=== PATIENT | male | born 1980 | race Caucasian/White ===

== ENCOUNTER → 2017-05-27 | Outpatient (CLI) | payer BC, OTHER ==
--- NOTE | 2017-05-27 07:10 | DIAGNOSTIC IMAGING REPORT ---
CT SCAN OF THE ABDOMEN AND PELVIS WITHOUT CONTRAST CLINICAL HISTORY: K50.90 CROHN'S DISEASE., History of surgery with possible abscess. COMPARISON STUDY: No previous studies for comparison. TECHNIQUE: CT scan of the abdomen and pelvis was performed from the lung bases to the proximal femurs. Images are reviewed in the axial, sagittal, and coronal planes. IV contrast was not administered for this examination. A dose lowering technique was utilized adhering to the principles of ALARA. CT DOSE: 736.35 mGy.cm FINDINGS: Lower chest: The heart is normal in size and configuration, without pericardial effusion. The lung bases and pleural spaces are clear. Liver: The unenhanced liver is normal in size, contour, and attenuation. There is no intrahepatic biliary ductal dilatation. Gallbladder: Unremarkable. Spleen: Normal in size and attenuation. Pancreas: Unremarkable. Adrenal glands: Unremarkable. Kidneys: The unenhanced kidneys are normal in size without hydronephrosis. There is no contour deforming renal mass lesion. No renal calculi are identified. Bowel: Evaluation the bowel is significantly limited given the lack of oral and intravenous contrast. There are no transition zones to indicate bowel obstruction. The patient appears to be status post a right hemicolectomy. There is infiltration of the fat at the expected level of the ileocolonic anastomosis. There are extraluminal air bubbles present. There is a surgical drain and air fluid collection measuring approximately 3 cm. This likely represents a perianastomotic abscess. Peritoneum: There is no evidence of significant ascites. Extraluminal gas bubbles present as described above. Vasculature: The abdominal aorta is normal in course and caliber. Adenopathy: None. Pelvic viscera: The bladder, and pelvic viscera are unremarkable. Skeletal structures: No destructive osseous lesions are seen. IMPRESSION: 1. Difficult to study given the lack of intravenous and orally administered contrast 2. No evidence of bowel obstruction 3. Postsurgical changes of an apparent right hemicolectomy. There are extensive inflammatory changes at the level of the ileocolonic anastomosis. There is infiltration of the surrounding mesenteric fat. There are multiple extraluminal gas bubbles. There is a surgical drain within a 3 cm abscess. Additional tiny abscesses may be present. Given the multiple extra luminal air bubbles, and anastomotic leak cannot be excluded.. Electronically signed by: Brayan Minor M.D. 05/27/2017 7:09 AM Dictated Date/Time: 05/27/2017 7:00 AM
== END | disposition home or self-care (01) ==
LOC: C.CTS 06:44
PROVIDERS: ATTEND Colon & Rectal Surgery
DX: K50.90 Crohn's disease, unspecified, without complications (principal)

== ENCOUNTER → 2017-06-12 | Outpatient (CLI) | payer BC ==
[~2017-06-12] MED LIST: OPTIRAY 320 IV PRN; PATIENT'S ALLERGY INFO NEEDS ENTERED SCH
--- NOTE | 2017-06-12 08:15 | DIAGNOSTIC IMAGING REPORT ---
ABD/PELVIS IV CONTRAST ONLY CLINICAL HISTORY: 36 years-old Male presenting with CROHN'S DS,RT LOWER QUAD PAIN,RT HIP PAIN,FISTULA. TECHNIQUE: Multidetector CT of the abdomen and pelvis was performed after the administration of intravenous contrast. IV contrast: 120 mL of Optiray 320. A dose lowering technique was used consistent with the principles of ALARA (as low as reasonably achievable). COMPARISON: 05/27/2017. CT DOSE (mGy.cm): The estimated cumulative dose is 475.63 mGy.cm. 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 Lung bases: Minimal dependent changes likely atelectasis. Normal heart size. Few foci of gas within the right ventricle likely from injection. No pericardial or pleural effusion. Liver: Normal morphology. Tiny hypodensity in the right hepatic lobe too small to characterize but likely hepatic cyst or hamartoma. Patent hepatic vasculature. Biliary: No intrahepatic or extrahepatic biliary ductal dilatation. Persistent bladder wall thickening with mucosal hyperenhancement. The degree of wall thickening is not changed from prior exam. This is immediately adjacent to inflammatory change in the right paracolic region and likely secondary. Pancreas: Mild parenchymal atrophy. Spleen: Normal. Adrenal glands: Normal. Kidneys and ureters: Normal. No hydronephrosis. Bladder: Incompletely evaluated secondary to underdistention. Pelvic organs: Prostate and seminal vesicles normal. Bowel: No gross evidence of perineal abnormality. No perirectal inflammatory change. Postsurgical changes of right hemicolectomy with ileocolic anastomosis. The anastomosis is suboptimally assessed without oral contrast. No bowel obstruction. Persistent extraluminal foci of gas both associated with the right mid abdominal pigtail catheter and extending superiorly towards the gallbladder fossa. This is along the superior lateral aspect of the anastomosis. This is not significantly changed from the prior exam. Small amount of fluid at the terminus of the drain. Extensive mesenteric fat infiltration, unchanged. No convincing evidence of bowel wall thickening. Peritoneal cavity: Right mid abdominal abscess cavity now measures 3 cm in maximal axial dimension, not significant changed from prior. No other free fluid. Free gas as mentioned above. Vasculature: Aorta and IVC patent and normal in caliber. Lymph nodes: Few small lymph nodes in the mesentery of the right abdomen, likely reactive. No pathologically enlarged lymph nodes. Abdominal wall: Midline ventral incision with small amount of fluid. Musculoskeletal: Normal. IMPRESSION: 1. No significant change in size and appearance of the right mid abdominal abscess cavity containing a pigtail drain. Associated locules of free gas not changed in size or extent. Evaluation for anastomotic leak status post right hemicolectomy and ileocolic anastomosis is limited without oral contrast. No bowel obstruction. 2. Stable appearance of bladder wall thickening, which is likely secondary to the adjacent inflammatory change. Electronically signed by: Helder Perez M.D. 06/12/2017 8:13 AM Dictated Date/Time: 06/12/2017 8:05 AM
== END | disposition home or self-care (01) ==
LOC: C.CTS 07:17
PROVIDERS: ATTEND Colon & Rectal Surgery
DX: K50.90 Crohn's disease, unspecified, without complications (principal); K63.2 Fistula of intestine; R10.31 Right lower quadrant pain; M25.551 Pain in right hip

== ENCOUNTER → 2017-12-15 | Outpatient (CLI) | payer OTHER ==
[~2017-12-15] MED LIST changes: -PATIENT'S ALLERGY INFO NEEDS ENTERED SCH
--- NOTE | 2017-12-15 09:40 | DIAGNOSTIC IMAGING REPORT ---
ABD/PELVIS IV CONTRAST ONLY CLINICAL HISTORY: 37 years-old Male presenting with CROHN DISEASE W ABSCESS AND FISTULA. TECHNIQUE: Multidetector CT of the abdomen and pelvis was performed after the administration of intravenous contrast. IV contrast: 116 mL of Optiray 320. A dose lowering technique was used consistent with the principles of ALARA (as low as reasonably achievable). COMPARISON: 06/12/2017. CT DOSE (mGy.cm): The estimated cumulative dose is 726.86 mGycm. 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 Lung bases: Lungs and pleural spaces clear. Normal heart size. No pericardial or pleural effusion. Liver: Normal morphology. No liver lesion. Patent hepatic vasculature. Biliary: No intrahepatic or extrahepatic biliary ductal dilatation. Gallbladder contains gallstones. Pancreas: Mild parenchymal atrophy. Spleen: Normal. Adrenal glands: Normal. Kidneys and ureters: Normal. No hydronephrosis. Bladder: Incompletely evaluated secondary to underdistention. Pelvic organs: Prostate and seminal vesicles normal. Bowel: Mild circumferential wall thickening of the rectum may be due to underdistention or chronic change. No perirectal fat infiltration. Prominence of the vasa recta of the rectum. The remainder of the colon has a similar appearance though with a slightly lesser degree of apparent wall thickening. Postsurgical changes of right hemicolectomy. Enterocolonic anastomosis is noted in the right mid abdomen. Persistence surrounding fat infiltration, likely related to chronic scarring. Evaluation is limited by the absence of oral contrast. The neoterminal ileum is somewhat poorly delineated. Interval removal of the previously noted percutaneous drain in the prior abscess cavity. A small cavity may still be present containing only a trace amount of gas (series 3 images [id number]). Inflammatory change extends anterior and superior to the anastomosis towards the inferior liver margin and the anterior peritoneum. This is similar to prior exam. No focal fluid collection in this region. Stellate fibrotic extensions extending from the anastomosis may represent a chronic desmoplastic reaction or collapse sinus tracts. Peritoneal cavity: No free fluid or intraperitoneal gas. Lymph nodes: No enlarged lymph nodes in the abdomen or pelvis. Vasculature: Aorta and IVC patent and normal in caliber. Diffuse prominence of mesenteric vasculature indicating chronic inflammatory change. Abdominal wall: Postsurgical changes of the midline abdominal wall. Musculoskeletal: Normal. IMPRESSION: 1. Interval removal of the percutaneous drain with near resolution of the abscess cavity. 2. Postsurgical changes of right hemicolectomy with a neoterminal ileum in the right mid abdomen. Evaluation of the bowel is limited by lack of oral contrast. 3. Chronic inflammatory changes at the neoterminal ileum/enterocolonic anastomosis. The appearance suggests chronic change with a desmoplastic reaction and scarring in the setting of prior penetrating disease. Lesser degrees of suspected chronic inflammatory change suspected throughout the colon, most prominently in the rectum. Allowing for lack of neutral enteric contrast, no convincing evidence of active inflammation. No evidence of fibrostenotic disease/bowel obstruction. Electronically signed by: Helder Perez M.D. 12/15/2017 9:38 AM Dictated Date/Time: 12/15/2017 9:28 AM
== END | disposition home or self-care (01) ==
LOC: C.CTS 08:56
PROVIDERS: ATTEND Internal Medicine Gastroenterology
DX: K50.90 Crohn's disease, unspecified, without complications (principal); Z90.49 Acquired absence of other specified parts of digestive tract; K63.9 Disease of intestine, unspecified